=== PATIENT | female | born 1995 | race Caucasian/White ===

== ENCOUNTER 2016-10-16 19:48 | Emergency (ER) ==
[2016-10-16] MEDS ORDERED: TETRACAINE 0.5% UNIT-DOSE OP STA (19:52)
[2016-10-16] MEDS ORDERED: GENTAK OPTH OINT OP STA (20:05)
[2016-10-16] MEDS ORDERED: EYE-STREAM OP STA (20:05)
[2016-10-16] MEDS ORDERED: FLUORETS OP STA (20:05)
[2016-10-16 20:07] VITALS: BP 126/80; TEMP 98.6; BMI 23.9
--- NOTE | 2016-10-16 20:07 | ED.PDOC ---
General ED Provider: Dr. ESTUARDO DUNLAP-ER Chief Complaint: Eye Problem Stated Complaint: [place] the park--i got it out but it still hurts Time Seen by Physician: 19:50 Mode of Arrival: Walk-In Information Source: Patient, Family Exam Limitations: No limitations Nursing and Triage Documentation Reviewed and Agree: Yes EENT Complaint Exam - Eye Complaint/Exam Onset/Duration: 1hr Symptoms Are: Still present Timing: Constant Initial Severity: Mild Current Severity: Mild Location: Discreet, Left Character: Reports: Dull, Throbbing, Foreign body sensation Aggravating: Reports: Blinking Alleviating: Reports: Darkness Associated Signs and Symptoms: Reports: Photophobia, Clear drainage, Vision impairment. Denies: Purulent drainage, Fever, Swelling Related History: Denies: Foreign body, Trauma, Glaucoma, Environmental, Meds used, Drops used Penetrating Injury Risk Factors: None Globe Rupture Risk Factors: None Acute Glaucoma Risk Factors: None Optic Artery Occlusion Risk Factors: None Visual Field: Normal Extraocular Movement: Normal Orbit Findings: Normal Globe Findings: Intact Lid Findings: Normal Conjunctival Findings: Red, Exudate Corneal Findings: Clear Fluorescein Uptake: Yes Fundi: Normal Slit Lamp Used: No Differential Diagnoses: Corneal Abrasion, Foreign Body Review of Systems - Review Of Systems Constitutional: Reports: No symptoms Eyes: Reports: Blurred vision, Foreign body sensation, Inflammation, Pain, Photophobia Ears, Nose, Mouth, Throat: Reports: No symptoms Respiratory: Reports: No symptoms Cardiac: Reports: No symptoms GI: Reports: No symptoms : Reports: No symptoms Musculoskeletal: Reports: No symptoms Skin: Reports: No symptoms Neurological: Reports: No symptoms Endocrine: Reports: No symptoms Hematologic/Lymphatic: Reports: No symptoms All Other Systems: Reviewed and Negative Past Medical History - Past Medical History Previously Healthy: Yes Endocrine: Reports: Unknown Cardiovascular: Reports: Unknown Respiratory: Reports: Unknown Hematological: Reports: Unknown Gastrointestinal: Reports: Unknown Genitourinary: Reports: Unknown Neuro/Psych: Reports: Unknown Musculoskeletal: Reports: Unknown Cancer: Reports: Unknown Last Menstrual Period: JUNE - Surgical History General Surgical History: Reports: Unknown - Family History Family History: Reports: Unknown - Social History Smoking Status: Former smoker Hx Substance Use: No Alcohol Screening: None Lives: With family - Immunizations Tetanus Shot up to Date: Yes Physical Exam - Physical Exam Appearance: Well-appearing, No pain distress, Well-nourished Pain Distress: Mild Eyes: JAVIER, EOMI, Conjunctiva inflammed ENT: Ears normal Neck: Supple Respiratory: Airway patent, Breath sounds clear, Breath sounds equal, Respirations nonlabored Cardiovascular: RRR, Pulses normal, No rub, No murmur GI/: Soft, Nontender, No masses, Bowel sounds normal, No Organomegaly Musculoskeletal: Normal strength, ROM intact, No edema, No calf tenderness Skin: Warm, Dry, Normal color Neurological: Sensation intact, Motor intact, Reflexes intact, Cranial nerves intact, Alert, Oriented Psychiatric: Affect appropriate, Mood appropriate, Anxious Procedures - Eye Procedure Location of Foreign Body: left eye Tetracaine Drops Administered: Yes Eye FB Removal: Other (no fb noted but uptake of flourescein is noted) Depth: Superficial Foreign Body Completely Removed: Yes Eye Irrigated: Yes Progress: eye patch is placed after gentak ointment Critical Care Note - Critical Care Note Total Time (mins): 0 Course - Course Orders, Labs, Meds: Orders Category Date Time Status Tetracaine HCl/Pf [Tetracaine 0.5% Unit-Dose] MEDS 10/16/16 19:52 Discontinued 2 drop OP ONCE STA Medications Discontinued Medications Generic Name Dose Route Start Last Admin Trade Name Freq PRN Reason Stop Dose Admin Tetracaine HCl 2 drop 10/16/16 19:52 Tetracaine 0.5% Unit-Dose OP 10/16/16 19:53 ONCE STA Vital Signs: Temp Pulse Resp BP Pulse Ox 10/16/16 19:49 98.6 F 80 16 126/80 98 Departure - Departure Time of Disposition: 20:11 Disposition: HOME SELF-CARE Discharge Problem: Corneal abrasion Qualifiers: Encounter type: initial encounter Laterality: left Qualifier Code: (S05.02XA) Injury of conjunctiva and corneal abrasion without foreign body, left eye, initial encounter Instructions: Corneal Abrasion (ED) Condition: Good Pt referred to PMD for follow-up: Yes Additional Instructions: keep eye patched---replace gentamycin ointment in am--norco 5mg q 4hrs prn pain #6---be sure and see eye doctor tomorrow to recheck the eye Disposition Discussed With: Patient, Family
== END 2016-10-16 20:18 | disposition home or self-care (01) ==
LOC: ED 19:48
DX: S05.90XA Unspecified injury of unspecified eye and orbit, initial encounter (principal)
CPT/HCPCS: 99282